=== PATIENT | female | born 1955 | race Caucasian/White ===

== ENCOUNTER 2021-07-01 12:34 | Outpatient (CLI) | payer BC | END 2021-07-01 12:35 | disposition home or self-care (01) | LOC: CSHMRI 12:34 | PROVIDERS: ATTEND Neurological Surgery | DX: M54.2 Cervicalgia (principal); M47.812 Spondylosis without myelopathy or radiculopathy, cervical region; M43.12 Spondylolisthesis, cervical region | CPT/HCPCS: 72040; 72141 ==

== ENCOUNTER 2022-05-11 15:48 | Outpatient (CLI) | payer BC | END 2022-05-11 15:49 | disposition home or self-care (01) | LOC: CSHLAB 15:48 | PROVIDERS: ATTEND Internal Medicine Critical Care Medicine | DX: Z20.822 Contact with and (suspected) exposure to COVID-19 (principal) | CPT/HCPCS: 87811 ==

== ENCOUNTER 2022-05-13 08:57 | Outpatient (CLI) | payer BC | END 2022-05-13 08:58 | disposition home or self-care (01) | LOC: CSHCP 08:57 | PROVIDERS: ATTEND Internal Medicine Critical Care Medicine | DX: J45.909 Unspecified asthma, uncomplicated (principal); J98.4 Other disorders of lung | CPT/HCPCS: 94060; 94726; 94729; 94760 ==